=== PATIENT | male | born 1970 | race Caucasian/White ===

== ENCOUNTER 2020-02-10 09:29 | Outpatient (CLI) | payer MEDICARE, SELFPAY ==
[2020-02-10 09:41] LABS: Basophils Absolute Auto 0.11 K/mm3 (0.00-0.10); Eosinophils Percent Auto 5.4 % (1.0-6.0); Hematocrit 49.6 % (40.0-54.0); Hemoglobin 17.1 g/dL (14.0-18.0); Immature Granulocyte Absolute 0.09 K/mm3 (0.00-0.00); Immature Granulocyte Percent A 0.8 % (0.0-0.0); Lymphocytes Absolute Auto 2.17 K/mm3 (1.10-4.50); Lymphocytes Percent Auto 19.4 % (18.0-42.0); Mean Corpuscular HGB Conc 34.5 g/dL (32.0-36.0); Mean Corpuscular Hemoglobin 30.6 pg (27.0-31.0); Mean Corpuscular Volume 88.7 fL (78.0-102.0); Mean Platelet Volume 9.6 fl (8.7-11.0); Monocytes Absolute Auto 1.32 K/mm3 (0.10-0.90); Monocytes Percent Auto 11.8 % (2.0-11.0); Neutrophils Absolute Auto 6.9 K/mm3 (1.7-7.2); Neutrophils Percent Auto 61.6 % (50.0-70.0); Platelet Count Result 250 K/mm3 (150-420); Red Blood Count 5.59 M/mm3 (4.70-6.10); Red Cell Distribution Width 12.7 % (11.6-14.4); White Blood Count 11.2 K/mm3 (4.8-10.8)
[2020-02-10 11:24] LABS: Alanine Aminotransferase 48 U/L (16-63); Albumin Level 3.8 g/dL (3.4-5.0); Alkaline Phosphatase 66 U/L (46-116); Anion Gap 16.1 mmol/L (7-16); Aspartate Amino Transferase 26 U/L (15-37); Bilirubin,Total 0.3 mg/dL (0.00-1.00); Blood Urea Nitrogen 10 mg/dL (7-18); Calcium 8.3 mg/dL (8.5-10.1); Carbon Dioxide 25 mmol/L (21-32); Chloride 105 mmol/L (98-108); Cholesterol 149 mg/dL (0-200); Estimated Glomerular Filt Rate 55; Free T4 Free Thyroxine 0.79 ng/dL (0.76-1.46); Glucose 99 mg/dL (70-99); HDL Direct 31 mg/dL (40-60); LDL Cholesterol Calculated 83 mg/dL (<130); Osmolality Calculated 293 mOsm/kg (285-295); Potassium 4.1 mmol/L (3.5-5.1); Sodium 142 mmol/L (136-145); Thyroid Stimulating Hormone 1.13 uIU/mL (0.36-3.74); Total Protein 6.8 g/dL (6.4-8.2); Triglycerides 177 mg/dL (0-150)
[2020-02-12 16:54] LABS: Vitamin D 25 Hydroxy 15 ng/mL (30-100)
[2020-02-14 18:56] LABS: Testosterone Free 178.1 pg/mL (35.0-155.0); Testosterone Total 672 ng/dL (250-1100)
== END 2020-02-10 09:30 | disposition home or self-care (01) ==
LOC: CHSLAB 09:33
PROVIDERS: PCP Family Medicine
DX: E23.0 Hypopituitarism (principal); E06.3 Autoimmune thyroiditis; E55.9 Vitamin D deficiency, unspecified
CPT/HCPCS: 36415; 80053; 80061; 82306; 84402; 84403; 84439; 84443; 84481; 85025

== ENCOUNTER 2020-07-09 13:44 | Outpatient (CLI) | payer MEDICARE, SELFPAY ==
[2020-07-09 13:55] LABS: Basophils Absolute Auto 0.11 K/mm3 (0.00-0.10); Basophils Percent Auto 0.9 % (0.0-1.0); Eosinophils Absolute Auto 0.55 K/mm3 (0.02-0.50); Eosinophils Percent Auto 4.3 % (1.0-6.0); Hematocrit 47.9 % (40.0-54.0); Hemoglobin 16.5 g/dL (14.0-18.0); Immature Granulocyte Absolute 0.13 K/mm3 (0.00-0.00); Lymphocytes Percent Auto 23.7 % (18.0-42.0); Mean Corpuscular HGB Conc 34.4 g/dL (32.0-36.0); Mean Corpuscular Volume 87.1 fL (78.0-102.0); Mean Platelet Volume 9.5 fl (8.7-11.0); Monocytes Absolute Auto 1.05 K/mm3 (0.10-0.90); Monocytes Percent Auto 8.3 % (2.0-11.0); Neutrophils Absolute Auto 7.8 K/mm3 (1.7-7.2); Neutrophils Percent Auto 61.8 % (50.0-70.0); Platelet Count Result 307 K/mm3 (150-420); Red Cell Distribution Width 12.9 % (11.6-14.4); White Blood Count 12.7 K/mm3 (4.8-10.8)
[2020-07-09 14:04] LABS: Hemoglobin A1C 5.9 % (<5.7)
[2020-07-09 14:48] LABS: Alanine Aminotransferase 36 U/L (16-63); Albumin Level 4.1 g/dL (3.4-5.0); Alkaline Phosphatase 73 U/L (46-116); Anion Gap 12 mmol/L (8-16); Aspartate Amino Transferase 18 U/L (15-37); Bilirubin,Total 0.8 mg/dL (0.00-1.00); Blood Urea Nitrogen 20 mg/dL (7-18); Calcium 9.4 mg/dL (8.5-10.1); Carbon Dioxide 25 mmol/L (21-32); Chloride 102 mmol/L (98-108); Estimated Glomerular Filt Rate 40; Glucose 96 mg/dL (70-99); Osmolality Calculated 290 mOsm/kg (285-295); Potassium 4.1 mmol/L (3.5-5.1); Sodium 139 mmol/L (136-145); Total Protein 7.7 g/dL (6.4-8.2)
[2020-07-12 07:00] LABS: Vitamin D 25 Hydroxy 26 ng/mL (30-100)
[2020-07-12 07:01] LABS: Insulin Level Total 20.5 uIU/mL (<=19.6)
[2020-07-13 10:31] LABS: Testosterone Free 189.7 pg/mL (35.0-155.0); Testosterone Total 713 ng/dL (250-1100)
== END 2020-07-09 13:45 | disposition home or self-care (01) ==
LOC: CHSLAB 13:46
PROVIDERS: PCP Nurse Practitioner Family; Visit Provider Internal Medicine Endocrinology, Diabetes & Metabolism
DX: E29.1 Testicular hypofunction (principal); E55.9 Vitamin D deficiency, unspecified; R73.01 Impaired fasting glucose
CPT/HCPCS: 36415; 80053; 82306; 83036; 83525; 84402; 84403; 85025

== ENCOUNTER 2020-07-11 09:45 | Outpatient (CLI) | payer MEDICARE, SELFPAY ==
--- NOTE | ~2020-07-11 | US_ITS ---
EXAMINATION: US retroperitoneal comp EXAM DATE: 07/11/2020 10:20 INDICATION: Abnormal labs. TECHNIQUE: Multiple grayscale and Doppler images of the kidneys were obtained (by a technologist who performed the scan) and subsequently reviewed. There is no prior study for comparison. FINDINGS: Right kidney: There is normal contour and echogenicity. It measures 11.6 x 6.6 x 6.2 centimeters. Th ere are scattered anechoic lesions consistent with cysts. There is no hydronephrosis. Left kidney: There is normal contour and echogenicity. It measures 11.6 x 5.8 x 5.7 centimeters. The re is a cyst measuring 1.9 cm. There is no hydronephrosis. Bladder unremarkable. IMPRESSION: 1. No hydronephrosis. 2. Renal cysts bilaterally. Reviewed, dictated and finalized at location B.
== END 2020-07-11 09:46 | disposition home or self-care (01) ==
PROVIDERS: PCP Family Medicine; Visit Provider Internal Medicine Endocrinology, Diabetes & Metabolism
DX: N28.9 Disorder of kidney and ureter, unspecified (principal)
CPT/HCPCS: 76770

== ENCOUNTER 2020-07-27 08:01 | Outpatient (CLI) | payer MEDICARE, SELFPAY ==
[2020-07-27 08:25] LABS: Add Urine Microscopic? NO; Appearance Urine Clear (Clear); Bilirubin Urine Negative (Negative); Blood Urine Negative (Negative); Color Urine Yellow (Yellow); Glucose Urine UA Negative (Negative); Ketones Urine Negative (Negative); Leukocyte Esterase Ur Negative (Negative); Nitrate Urine Negative (Negative); Protein Urine Negative (Negative); Specific Grav Ur 1.015 (1.010-1.020); Urobilinogen Urine 0.2 mg/dL (0.2-1.0); pH Urine 6.5 (5.0-8.0)
[2020-07-27 08:26] LABS: Basophils Absolute Auto 0.09 K/mm3 (0.00-0.10); Eosinophils Absolute Auto 0.44 K/mm3 (0.02-0.50); Eosinophils Percent Auto 4.9 % (1.0-6.0); Hematocrit 47.1 % (40.0-54.0); Hemoglobin 15.9 g/dL (14.0-18.0); Immature Granulocyte Absolute 0.12 K/mm3 (0.00-0.00); Immature Granulocyte Percent A 1.3 % (0.0-0.0); Lymphocytes Absolute Auto 2.33 K/mm3 (1.10-4.50); Lymphocytes Percent Auto 25.7 % (18.0-42.0); Mean Corpuscular HGB Conc 33.8 g/dL (32.0-36.0); Mean Corpuscular Volume 88.9 fL (78.0-102.0); Monocytes Absolute Auto 0.82 K/mm3 (0.10-0.90); Neutrophils Absolute Auto 5.3 K/mm3 (1.7-7.2); Neutrophils Percent Auto 58.1 % (50.0-70.0); Platelet Count Result 288 K/mm3 (150-420); Red Cell Distribution Width 13.2 % (11.6-14.4); White Blood Count 9.1 K/mm3 (4.8-10.8)
[2020-07-27 09:11] LABS: Hemoglobin A1C 5.4 % (<5.7)
[2020-07-27 09:42] LABS: Alanine Aminotransferase 45 U/L (16-63); Alkaline Phosphatase 65 U/L (46-116); Anion Gap 9 mmol/L (8-16); Aspartate Amino Transferase 14 U/L (15-37); Bilirubin,Total 0.6 mg/dL (0.00-1.00); Blood Urea Nitrogen 16 mg/dL (7-18); Carbon Dioxide 25 mmol/L (21-32); Chloride 103 mmol/L (98-108); Cholesterol 190 mg/dL (0-200); Estimated Glomerular Filt Rate 44; Glucose 113 mg/dL (70-99); HDL Direct 24 mg/dL (40-60); LDL Cholesterol Calculated 99 mg/dL (<130); Osmolality Calculated 286 mOsm/kg (285-295); Potassium 4.5 mmol/L (3.5-5.1); Prostate Specific Antigen 0.8 ng/mL (< OR = 4.0); Sodium 137 mmol/L (136-145); Total Protein 7.2 g/dL (6.4-8.2); Triglycerides 335 mg/dL (0-150)
[2020-07-30 03:08] LABS: Insulin Level Total 17.4 uIU/mL (<=19.6)
[2020-07-31 12:28] LABS: Vitamin D 25 Hydroxy 25 ng/mL (30-100)
[2020-08-05 12:27] LABS: Testosterone Free 70.5 pg/mL (35.0-155.0); Testosterone Total 328 ng/dL (250-1100)
== END 2020-07-27 08:02 | disposition home or self-care (01) ==
LOC: CHSLAB 08:03
PROVIDERS: PCP Nurse Practitioner Family; Visit Provider Internal Medicine Endocrinology, Diabetes & Metabolism
DX: N28.9 Disorder of kidney and ureter, unspecified (principal); R73.03 Prediabetes; E29.1 Testicular hypofunction; E55.9 Vitamin D deficiency, unspecified; Z12.5 Encounter for screening for malignant neoplasm of prostate; Z79.899 Other long term (current) drug therapy
CPT/HCPCS: 36415; 80053; 80061; 81003; 82306; 83036; 83525; 84153; 84402; 84403; 85025; G0103

== ENCOUNTER 2021-03-28 08:39 | Outpatient (CLI) | payer MEDICARE, SELFPAY ==
[2021-03-28 09:00] LABS: Add Urine Microscopic? NO; Appearance Urine Clear (Clear); Bilirubin Urine Negative (Negative); Blood Urine Negative (Negative); Color Urine Yellow (Yellow); Glucose Urine UA Negative (Negative); Ketones Urine Negative (Negative); Leukocyte Esterase Ur Negative LEU/UL (Negative); Nitrate Urine Negative (Negative); Protein Urine Negative (Negative); Urobilinogen Urine 0.2 mg/dL (0.2-1.0)
[2021-03-28 09:08] LABS: Basophils Absolute Auto 0.09 K/mm3 (0.00-0.10); Basophils Percent Auto 1.1 % (0.0-1.0); Hematocrit 49.9 % (40.0-54.0); Hemoglobin 17.3 g/dL (14.0-18.0); Immature Granulocyte Absolute 0.04 K/mm3 (0.00-0.00); Immature Granulocyte Percent A 0.5 % (0.0-0.0); Lymphocytes Absolute Auto 2.27 K/mm3 (1.10-4.50); Lymphocytes Percent Auto 28.4 % (18.0-42.0); Mean Corpuscular HGB Conc 34.7 g/dL (32.0-36.0); Mean Corpuscular Hemoglobin 30.6 pg (27.0-31.0); Mean Corpuscular Volume 88.2 fL (78.0-102.0); Mean Platelet Volume 9.5 fl (8.7-11.0); Monocytes Absolute Auto 0.59 K/mm3 (0.10-0.90); Monocytes Percent Auto 7.4 % (2.0-11.0); Neutrophils Absolute Auto 4.6 K/mm3 (1.7-7.2); Neutrophils Percent Auto 57.6 % (50.0-70.0); Platelet Count Result 294 K/mm3 (150-420); Red Blood Count 5.66 M/mm3 (4.70-6.10); Red Cell Distribution Width 12.7 % (11.6-14.4)
[2021-03-28 09:12] LABS: Creatinine Urine 125.04 mg/dL (40-278); MALB Creatinine Ratio 11.2 mg/g (0-30); Microalbumin Urine Random 14.1 mg/L; Partial Thromboplastin Time 25.1 SEC (23.90-30.70); Prothrombin Time 10.4 Seconds (9.50-12.10); Total Protein Urine Random 10.7 mg/dL (0.0-11.9); Ur Ttl Prot Creatinine Ratio 0.09 mg/mg (0-0.20)
[2021-03-28 10:00] LABS: Erythrocyte Sedimentation Rate 4 mm/hr (0-20)
[2021-03-28 11:29] LABS: Albumin Level 4.2 g/dL (3.4-5.0); Anion Gap 12 mmol/L (8-16); Blood Urea Nitrogen 39 mg/dL (7-18); CRP < 0.5 mg/dL (0.0-0.9); Calcium 9.5 mg/dL (8.5-10.1); Carbon Dioxide 25 mmol/L (21-32); Chloride 101 mmol/L (98-108); Estimated Glomerular Filt Rate 34; Glucose 114 mg/dL (70-99); Magnesium 1.7 mg/dL (1.8-2.4); Osmolality Calculated 296 mOsm/kg (285-295); Phosphorus 3.4 mg/dL (2.6-4.7); Potassium 4.8 mmol/L (3.5-5.1); Sodium 138 mmol/L (136-145)
[2021-03-31 11:21] LABS: Parathyroid Intact 22 pg/mL (14-64)
[2021-04-01 03:03] LABS: Hepatitis A Antibody IgM Nonreactive; Hepatitis B Core Antibody Nonreactive (Nonreactive); Hepatitis B Surface Antigen Nonreactive (Nonreactive); Hepatitis C Virus Antibody Nonreactive (Nonreactive)
[2021-04-01 12:40] LABS: Complement Total CH50 >60 U/mL (31-60)
[2021-04-02 08:21] LABS: Albumin 3.9 g/dL (3.8-4.8); Alpha 1 Globulin 0.3 g/dL (0.2-0.3); Alpha 2 Globulin 0.8 g/dL (0.5-0.9); Beta 1 Globulin 0.6 g/dL (0.4-0.6); Complement C3 167 mg/dL (82-185); Gamma Globulin 1.1 g/dL (0.8-1.7); Protein, Total 7.2 g/dL (6.1-8.1)
[2021-04-02 11:05] LABS: Vitamin D 25 Hydroxy 34 ng/mL (30-100)
[2021-04-03 04:14] LABS: Kappa\\Lambda Light Chains 1.44 (0.26-1.65); Lambda Light Chain 17.7 mg/L (5.7-26.3)
== END 2021-03-28 08:40 | disposition home or self-care (01) ==
LOC: CHSLAB 08:44
PROVIDERS: PCP Family Medicine; Visit Provider Internal Medicine Nephrology
DX: N39.0 Urinary tract infection, site not specified (principal); D63.1 Anemia in chronic kidney disease; I77.6 Arteritis, unspecified; N25.0 Renal osteodystrophy; K75.9 Inflammatory liver disease, unspecified; E55.9 Vitamin D deficiency, unspecified
CPT/HCPCS: 36415; 80069; 80074; 81003; 82043; 82306; 82570; 83735; 83883; 83970; 84155; 84156; 84165; 85025; 85610; 85652; 85730; 86140; 86160; 86162; 86334

== ENCOUNTER 2021-05-10 08:13 | Outpatient (CLI) | payer MEDICARE, SELFPAY ==
[2021-05-10 08:36] LABS: Creatinine Urine 134.56 mg/dL (40-278); MALB Creatinine Ratio 9.6 mg/g (0-30); Microalbumin Urine Random < 13.0 mg/L; Ur Ttl Prot Creatinine Ratio 0.13 mg/mg (0-0.20)
[2021-05-10 09:06] LABS: Albumin Level 3.7 g/dL (3.4-5.0); Anion Gap 12 mmol/L (8-16); Blood Urea Nitrogen 21 mg/dL (7-18); Carbon Dioxide 24 mmol/L (21-32); Chloride 104 mmol/L (98-108); Estimated Glomerular Filt Rate 60; Glucose 128 mg/dL (70-99); Osmolality Calculated 295 mOsm/kg (285-295); Phosphorus 2.3 mg/dL (2.6-4.7); Potassium 4.6 mmol/L (3.5-5.1); Sodium 140 mmol/L (136-145)
[2021-05-13 03:38] LABS: Vitamin D 25 Hydroxy 29 ng/mL (30-100)
== END 2021-05-10 08:14 | disposition home or self-care (01) ==
LOC: CHSLAB 08:15
PROVIDERS: PCP Family Medicine; Visit Provider Internal Medicine Nephrology
DX: E55.9 Vitamin D deficiency, unspecified (principal); I12.9 Hypertensive chronic kidney disease with stage 1 through stage 4 chronic kidney disease, or unspecified chronic kidney disease; N18.30 Chronic kidney disease, stage 3 unspecified; E78.5 Hyperlipidemia, unspecified; G89.29 Other chronic pain
CPT/HCPCS: 36415; 80069; 82043; 82306; 82570; 83735; 84156

== ENCOUNTER 2021-06-06 09:03 | Outpatient (CLI) | payer MEDICARE, SELFPAY ==
[2021-06-06 09:14] LABS: Basophils Absolute Auto 0.15 K/mm3 (0.00-0.10); Basophils Percent Auto 1.3 % (0.0-1.0); Eosinophils Absolute Auto 0.68 K/mm3 (0.02-0.50); Hematocrit 42.7 % (40.0-54.0); Hemoglobin 15.4 g/dL (14.0-18.0); Immature Granulocyte Absolute 0.23 K/mm3 (0.00-0.00); Lymphocytes Absolute Auto 3.16 K/mm3 (1.10-4.50); Lymphocytes Percent Auto 27.8 % (18.0-42.0); Mean Corpuscular HGB Conc 36.1 g/dL (32.0-36.0); Mean Corpuscular Hemoglobin 30.8 pg (27.0-31.0); Mean Corpuscular Volume 85.4 fL (78.0-102.0); Mean Platelet Volume 9.1 fl (8.7-11.0); Monocytes Absolute Auto 0.83 K/mm3 (0.10-0.90); Monocytes Percent Auto 7.3 % (2.0-11.0); Neutrophils Absolute Auto 6.3 K/mm3 (1.7-7.2); Neutrophils Percent Auto 55.6 % (50.0-70.0); Platelet Count Result 331 K/mm3 (150-420); Red Cell Distribution Width 13.1 % (11.6-14.4); White Blood Count 11.4 K/mm3 (4.8-10.8)
[2021-06-06 10:03] LABS: Alanine Aminotransferase 41 U/L (16-63); Alkaline Phosphatase 85 U/L (46-116); Anion Gap 14 mmol/L (8-16); Aspartate Amino Transferase 18 U/L (15-37); Bilirubin,Total 0.5 mg/dL (0.00-1.00); Blood Urea Nitrogen 23 mg/dL (7-18); Carbon Dioxide 21 mmol/L (21-32); Chloride 105 mmol/L (98-108); Estimated Glomerular Filt Rate 54; Glucose 110 mg/dL (70-99); Osmolality Calculated 294 mOsm/kg (285-295); Potassium 4.7 mmol/L (3.5-5.1); Sodium 140 mmol/L (136-145); Total Protein 7.4 g/dL (6.4-8.2)
[2021-06-11 18:26] LABS: Testosterone Free 38.5 pg/mL (35.0-155.0); Testosterone Total 171 ng/dL (250-1100)
== END 2021-06-06 09:04 | disposition home or self-care (01) ==
LOC: CHSLAB 09:05
PROVIDERS: PCP Family Medicine
DX: R79.89 Other specified abnormal findings of blood chemistry (principal)
CPT/HCPCS: 36415; 80053; 84146; 84402; 84403; 85025

== ENCOUNTER 2021-12-28 08:58 | Outpatient (CLI) | payer MEDICARE, SELFPAY ==
[2021-12-28 09:10] LABS: Basophils Absolute Auto 0.11 K/mm3 (0.00-0.10); Eosinophils Absolute Auto 0.59 K/mm3 (0.02-0.50); Eosinophils Percent Auto 5.5 % (1.0-6.0); Hematocrit 52.6 % (40.0-54.0); Hemoglobin 18.2 g/dL (14.0-18.0); Immature Granulocyte Absolute 0.07 K/mm3 (0.00-0.00); Immature Granulocyte Percent A 0.6 % (0.0-0.0); Lymphocytes Absolute Auto 1.97 K/mm3 (1.10-4.50); Lymphocytes Percent Auto 18.2 % (18.0-42.0); Mean Corpuscular HGB Conc 34.6 g/dL (32.0-36.0); Mean Corpuscular Hemoglobin 30.6 pg (27.0-31.0); Mean Corpuscular Volume 88.6 fL (78.0-102.0); Mean Platelet Volume 9.5 fl (8.7-11.0); Monocytes Absolute Auto 1.02 K/mm3 (0.10-0.90); Monocytes Percent Auto 9.4 % (2.0-11.0); Neutrophils Absolute Auto 7.1 K/mm3 (1.7-7.2); Neutrophils Percent Auto 65.3 % (50.0-70.0); Platelet Count Result 278 K/mm3 (150-420); Red Blood Count 5.94 M/mm3 (4.70-6.10); Red Cell Distribution Width 14.1 % (11.6-14.4); White Blood Count 10.8 K/mm3 (4.8-10.8)
[2021-12-28 09:25] LABS: Hemoglobin A1C 5.6 % (<5.7)
[2021-12-28 09:47] LABS: Alanine Aminotransferase 42 U/L (16-63); Albumin Level 3.6 g/dL (3.4-5.0); Alkaline Phosphatase 74 U/L (46-116); Anion Gap 10 mmol/L (8-16); Aspartate Amino Transferase 25 U/L (15-37); Bilirubin,Total 0.6 mg/dL (0.00-1.00); Blood Urea Nitrogen 13 mg/dL (7-18); Calcium 8.8 mg/dL (8.5-10.1); Carbon Dioxide 30 mmol/L (21-32); Chloride 102 mmol/L (98-108); Cholesterol 144 mg/dL (0-200); Estimated Glomerular Filt Rate 51; Glucose 113 mg/dL (70-99); HDL Direct 34 mg/dL (40-60); LDL Cholesterol Calculated 73 mg/dL (<130); Osmolality Calculated 295 mOsm/kg (285-295); Potassium 3.2 mmol/L (3.5-5.1); Sodium 142 mmol/L (136-145); Total Protein 7.1 g/dL (6.4-8.2); Triglycerides 185 mg/dL (0-150)
[2022-01-02 04:36] LABS: Insulin Level Total 18.8 uIU/mL (<=19.6)
[2022-01-02 14:26] LABS: Testosterone Free 177.2 pg/mL (35.0-155.0); Testosterone Total 547 ng/dL (250-1100)
== END 2021-12-28 08:59 | disposition home or self-care (01) ==
LOC: CHSLAB 09:00
PROVIDERS: PCP Family Medicine; Visit Provider Internal Medicine Endocrinology, Diabetes & Metabolism
DX: R73.01 Impaired fasting glucose (principal); E78.00 Pure hypercholesterolemia, unspecified
CPT/HCPCS: 36415; 80053; 80061; 83036; 83525; 84402; 84403; 85025

== ENCOUNTER 2022-04-11 10:15 | Outpatient (CLI) | payer MEDICARE, SELFPAY ==
[2022-04-11 10:27] LABS: Eosinophils Absolute Auto 0.57 K/mm3 (0.02-0.50); Eosinophils Percent Auto 5.5 % (1.0-6.0); Hematocrit 47.9 % (40.0-54.0); Hemoglobin 16.6 g/dL (14.0-18.0); Immature Granulocyte Absolute 0.12 K/mm3 (0.00-0.00); Immature Granulocyte Percent A 1.2 % (0.0-0.0); Lymphocytes Absolute Auto 2.52 K/mm3 (1.10-4.50); Lymphocytes Percent Auto 24.2 % (18.0-42.0); Mean Corpuscular HGB Conc 34.7 g/dL (32.0-36.0); Mean Corpuscular Hemoglobin 31.2 pg (27.0-31.0); Mean Platelet Volume 9.2 fl (8.7-11.0); Monocytes Absolute Auto 0.75 K/mm3 (0.10-0.90); Monocytes Percent Auto 7.2 % (2.0-11.0); Neutrophils Absolute Auto 6.4 K/mm3 (1.7-7.2); Neutrophils Percent Auto 60.9 % (50.0-70.0); Platelet Count Result 336 K/mm3 (150-420); Red Blood Count 5.32 M/mm3 (4.70-6.10); Red Cell Distribution Width 12.8 % (11.6-14.4); White Blood Count 10.4 K/mm3 (4.8-10.8)
[2022-04-11 18:01] LABS: Alanine Aminotransferase 63 U/L (16-63); Albumin Level 3.5 g/dL (3.4-5.0); Alkaline Phosphatase 77 U/L (46-116); Anion Gap 9 mmol/L (8-16); Aspartate Amino Transferase 25 U/L (15-37); Bilirubin,Total 0.4 mg/dL (0.00-1.00); Blood Urea Nitrogen 20 mg/dL (7-18); Calcium 8.6 mg/dL (8.5-10.1); Carbon Dioxide 21 mmol/L (21-32); Chloride 106 mmol/L (98-108); Cholesterol 184 mg/dL (0-200); Estimated Glomerular Filt Rate 53; Glucose 123 mg/dL (70-99); HDL Direct 38 mg/dL (40-60); LDL Cholesterol Calculated 94 mg/dL (<130); Osmolality Calculated 285 mOsm/kg (285-295); Potassium 4.4 mmol/L (3.5-5.1); Sodium 136 mmol/L (136-145); Total Protein 7.6 g/dL (6.4-8.2); Triglycerides 260 mg/dL (0-150)
[2022-04-11 19:07] LABS: Hemoglobin A1C 5.6 % (<5.7)
[2022-04-15 19:15] LABS: Testosterone Free 17.4 pg/mL (35.0-155.0); Testosterone Total 78 ng/dL (250-1100)
== END 2022-04-11 10:16 | disposition home or self-care (01) ==
LOC: CHSLAB 10:18
PROVIDERS: PCP Family Medicine; Visit Provider Internal Medicine Endocrinology, Diabetes & Metabolism
DX: E29.1 Testicular hypofunction (principal); R73.03 Prediabetes; Z13.6 Encounter for screening for cardiovascular disorders
CPT/HCPCS: 36415; 80053; 80061; 83036; 84402; 84403; 85025

== ENCOUNTER 2022-07-31 01:33 | Day surgery (SDC) | payer MEDICARE, SELFPAY ==
[2022-07-22 10:34] VITALS: BMI 32.8
[2022-07-31 08:00] VITALS: BP 182/109; PULSE 104; RESP 16; TEMP 36.6; O2SAT 98; BMI 31.1
[2022-07-31] MEDS: LACTATED RINGERS 1,000 ML 150 ML IV CONT (08:23)
--- NOTE | 2022-07-31 08:33 | WPDANESEPPF ---
Anes - Initial Pre Proc Eval Procedure: Operation Date: 07/31/22 09:45 Proposed Procedures p Screening Colonoscopy - Sergio Barrow DO Date/Time: 07/31/22 08:33 Surgeon: Sergio Barrow DO Pre Op Diagnosis: hx of colon polyps Patient Data Age: 51 Gender: M Height: 1.83 m Weight: 104.1 kg Last Vital Signs Temp 97.8 F 07/31/22 08:00 Pulse 104 H 07/31/22 08:00 Resp 16 07/31/22 08:00 BP 182/109 H 07/31/22 08:00 Pulse Ox 98 07/31/22 08:00 O2 Del Method Room Air 07/31/22 08:00 Allergies Allergy/AdvReac Type Severity Reaction Status Date / Time bee venom protein (honey bee) Allergy Unknown SWELLING Verified 07/31/22 08:08 Bee stings Allergy Intermediate Unknown Uncoded 07/31/22 08:08 Home Medications Medication Instructions Recorded Confirmed Type cariprazine 1.5 mg capsule 1.5 mg PO DAILY 04/27/20 07/31/22 History gabapentin 100 mg capsule 100 mg PO TID 04/27/20 07/31/22 History testosterone cypionate 200 mg/mL 200 mg subcut WEEKLY 04/27/20 07/31/22 History intramuscular oil lisinopril 40 mg tablet See Rx Instructions .Route 12/26/20 07/31/22 Rx .COMPLEX #90 tabs rosuvastatin 20 mg tablet See Rx Instructions .Route 07/14/22 07/31/22 Rx .COMPLEX #90 tabs tamsulosin 0.4 mg capsule See Rx Instructions .Route 07/14/22 07/31/22 Rx .COMPLEX #90 caps tizanidine 4 mg tablet See Rx Instructions .Route 07/14/22 07/31/22 Rx .COMPLEX #120 tabs Patient hx anesthesia problems: none Family hx anesthesia problems: none Results Review: All pre-operative results and documents have been reviewed as part of the pre-operative evaluation. [facility] Past Medical History Medical History ADD (attention deficit disorder) Benign hypertension Bipolar disorder with depression BPH (benign prostatic hyperplasia) Generalized anxiety disorder Hypercholesteremia Other testicular dysfunction Surgical History Surgical History History of appendectomy History of repair of rotator cuff S/P spinal surgery Spinal cord injury 2002 Family History Family History Mother Family history of coronary artery disease Other Family history of arthritis Family history of malignant neoplasm Social History Social History Smoking packs per day: 1 Smoking cigarettes per day: 20.0 Years smoked: 20 Smoking pack-years: 20.00 Smoking status: Former smoker Tobacco type: cigarettes and smokeless tobacco Alcohol intake: never Substance use: never Substance use type: does not use Living arrangements: with friend(s) Additional occupation/education comments: disability Gender identity (if verbalized by the patient): Male Spiritual care concerns: No Anes - Eval Final PreProcedure Day of Procedure 07/31/22 08:33 Patient weight: obese Heart: regular rate and rhythm Lungs: clear to auscultation Airway: Mallampati scale class II Neurological: alert and oriented Last oral intake: >/= 8 hours ASA classification: III Emergent: no Anesthetic plan: proceed Anesthesia type and monitoring: general GIVS and standard monitoring Results Review: All pre-operative results and documents have been reviewed as part of the pre-operative evaluation. Informed Consent: The patient's anesthetic plan and its attendant risks and benefits were discussed with the patient/family/POA. Questions were solicited and answers provided to the satisfaction of the patient/family/POA.
--- NOTE | 2022-07-31 09:14 | PM.IMHP ---
H&P: HPI History of Present Illness Date/Time: 07/31/22 09:14 Chief Complaint: History of colon polyps Narrative: 51 yo man presents for colonoscopy. last done 3 years ago and polyps removed. he denies any hematochezia or melena. He has an aunt that has a history of colon cancer but no first-degree relatives. Review of Systems Review of Systems: All systems reviewed & are unremarkable except as noted in HPI and below Constitutional: Constitutional: Denies chills, Denies fever(s), Denies headache(s) and Denies weight loss Eyes: Eyes: Denies change in vision ENT: Denies dizziness, Denies headache(s), Denies neck mass and Denies throat swelling Cardiovascular: Cardiovascular: Denies chest pain, Denies lightheadedness and Denies dyspnea Respiratory: Respiratory: Denies cough, Denies dyspnea and Denies wheezing Gastrointestinal: Gastrointestinal: Denies abdominal pain, Denies change in bowel habits, Denies nausea and Denies vomiting Genitourinary: Genitourinary: Denies hematuria and Denies dysuria Musculoskeletal: Musculoskeletal: Reports as per HPI Integumentary/Breasts: Skin/Breast: Reports as per HPI Neurologic: Denies dizziness and Denies headache(s) Allergic/Immunologic: Allergic/Immunologic: Denies throat swelling and Denies wheezing [facility] Past Medical History Medical History (Updated 07/31/22 @ 09:15 by Sergio Barrow DO) ADD (attention deficit disorder) Benign hypertension Bipolar disorder with depression BPH (benign prostatic hyperplasia) Generalized anxiety disorder Hypercholesteremia Other testicular dysfunction Surgical History Surgical History History of appendectomy History of repair of rotator cuff S/P spinal surgery Spinal cord injury 2002 Family History Family History Mother Family history of coronary artery disease Other Family history of arthritis Family history of malignant neoplasm Social History Social History Smoking packs per day: 1 Smoking cigarettes per day: 20.0 Years smoked: 20 Smoking pack-years: 20.00 Smoking status: Former smoker Tobacco type: cigarettes and smokeless tobacco Alcohol intake: never Substance use: never Substance use type: does not use Living arrangements: with friend(s) Additional occupation/education comments: disability Gender identity (if verbalized by the patient): Male Spiritual care concerns: No Meds Home Medications and Allergies Home Medications Medication Instructions Recorded Confirmed Type cariprazine 1.5 mg capsule 1.5 mg PO DAILY 04/27/20 07/31/22 History gabapentin 100 mg capsule 100 mg PO TID 04/27/20 07/31/22 History testosterone cypionate 200 mg/mL 200 mg subcut WEEKLY 04/27/20 07/31/22 History intramuscular oil lisinopril 40 mg tablet See Rx Instructions .Route 12/26/20 07/31/22 Rx .COMPLEX #90 tabs rosuvastatin 20 mg tablet See Rx Instructions .Route 07/14/22 07/31/22 Rx .COMPLEX #90 tabs tamsulosin 0.4 mg capsule See Rx Instructions .Route 07/14/22 07/31/22 Rx .COMPLEX #90 caps tizanidine 4 mg tablet See Rx Instructions .Route 07/14/22 07/31/22 Rx .COMPLEX #120 tabs Allergies Allergy/AdvReac Type Severity Reaction Status Date / Time bee venom protein (honey bee) Allergy Unknown SWELLING Verified 07/31/22 08:08 Bee stings Allergy Intermediate Unknown Uncoded 07/31/22 08:08 Vital Signs Vital Signs - 24 hr 07/31/22 08:00 Temperature 36.6 C Pulse Rate 104 H Respiratory Rate 16 Blood Pressure 182/109 H Pulse Oximetry 98 Oxygen Delivery Room Air Exam Const: General: no acute distress and alert Orientation/consciousness: patient oriented x3 HENMT: Head: normocephalic and atraumatic Ears: hearing grossly normal bilaterally General nose exam: Normal nares present Mouth: Yes Normal oral
--- NOTE | 2022-07-31 09:44 | SUR.OPER ---
Addendum entered by Marga Kingsley RN 07/31/22 09:46: hepatic flexure polyp did not come through until descending colon polyp was retrieved. both polyps sent in the same jar per dr posadas request. Original Note: hepatic flexure polyp did not come through until descending colon polyp was retrieved. both polyps sent in the same jar.
[2022-07-31 09:55] VITALS: BP 108/78; PULSE 110; RESP 19; O2SAT 93
[2022-07-31 10:05] VITALS: BP 132/84; PULSE 102; RESP 20; O2SAT 94
[2022-07-31 10:15] VITALS: BP 134/100; PULSE 100; RESP 20; O2SAT 94
--- NOTE | 2022-07-31 10:22 | SUR.PHASEII ---
pts bp 130/90-100s in post op. pt did not take his bp med yet, instructed him to take as soon as he got home. voiced understanding.
== END 2022-07-31 10:25 | disposition home or self-care (01) ==
PROVIDERS: PCP Nurse Practitioner Family; Visit Provider Surgery
PROC: 0DJD8ZZ Inspection of Lower Intestinal Tract, Via Natural or Artificial Opening Endoscopic (ICD-10-PCS; CPT 45378; principal; 2022-07-31 09:45)
DX: Z12.11 Encounter for screening for malignant neoplasm of colon (principal); D12.3 Benign neoplasm of transverse colon; K63.5 Polyp of colon; K57.30 Diverticulosis of large intestine without perforation or abscess without bleeding; K64.8 Other hemorrhoids; I10 Essential (primary) hypertension; E78.00 Pure hypercholesterolemia, unspecified; N40.0 Benign prostatic hyperplasia without lower urinary tract symptoms; F31.9 Bipolar disorder, unspecified; F98.8 Other specified behavioral and emotional disorders with onset usually occurring in childhood and adolescence; F41.1 Generalized anxiety disorder; Z87.891 Personal history of nicotine dependence
CPT/HCPCS: 45385; 88305; J2704; J7120

== ENCOUNTER 2022-09-26 08:47 | Outpatient (CLI) | payer MEDICARE, SELFPAY ==
[2022-09-26 09:02] LABS: Eosinophils Absolute Auto 0.45 K/mm3 (0.02-0.50); Eosinophils Percent Auto 4.6 % (1.0-6.0); Hematocrit 51.1 % (40.0-54.0); Hemoglobin 18.1 g/dL (14.0-18.0); Immature Granulocyte Absolute 0.04 K/mm3 (0.00-0.00); Immature Granulocyte Percent A 0.4 % (0.0-0.0); Lymphocytes Absolute Auto 2.78 K/mm3 (1.10-4.50); Lymphocytes Percent Auto 28.7 % (18.0-42.0); Mean Corpuscular HGB Conc 35.4 g/dL (32.0-36.0); Mean Corpuscular Hemoglobin 31.2 pg (27.0-31.0); Mean Corpuscular Volume 88.1 fL (78.0-102.0); Mean Platelet Volume 9.1 fl (8.7-11.0); Monocytes Absolute Auto 0.72 K/mm3 (0.10-0.90); Monocytes Percent Auto 7.4 % (2.0-11.0); Neutrophils Absolute Auto 5.6 K/mm3 (1.7-7.2); Neutrophils Percent Auto 57.9 % (50.0-70.0); Platelet Count Result 288 K/mm3 (150-420); White Blood Count 9.7 K/mm3 (4.8-10.8)
[2022-09-26 09:24] LABS: Hemoglobin A1C 5.8 % (<5.7)
[2022-09-26 09:26] LABS: Alanine Aminotransferase 51 U/L (16-63); Albumin Level 3.9 g/dL (3.4-5.0); Alkaline Phosphatase 81 U/L (46-116); Anion Gap 10 mmol/L (8-16); Aspartate Amino Transferase 29 U/L (15-37); Bilirubin,Total 0.6 mg/dL (0.00-1.00); Blood Urea Nitrogen 13 mg/dL (7-18); Calcium 8.9 mg/dL (8.5-10.1); Carbon Dioxide 24 mmol/L (21-32); Chloride 106 mmol/L (98-108); Cholesterol 174 mg/dL (0-200); Estimated Glomerular Filt Rate 58; Glucose 114 mg/dL (70-99); HDL Direct 42 mg/dL (40-60); LDL Cholesterol Calculated 72 mg/dL (<130); Osmolality Calculated 291 mOsm/kg (285-295); Potassium 4.2 mmol/L (3.5-5.1); Sodium 140 mmol/L (136-145); Triglycerides 299 mg/dL (0-150)
[2022-09-30 15:01] LABS: Testosterone Free 25.2 pg/mL (35.0-155.0); Testosterone Total 128 ng/dL (250-1100)
== END 2022-09-26 08:48 | disposition home or self-care (01) ==
LOC: CHSLAB 08:51
PROVIDERS: PCP Nurse Practitioner Family; Visit Provider Internal Medicine Endocrinology, Diabetes & Metabolism
DX: R73.03 Prediabetes (principal); E29.1 Testicular hypofunction; Z13.6 Encounter for screening for cardiovascular disorders
CPT/HCPCS: 36415; 80053; 80061; 83036; 84402; 84403; 85025

== ENCOUNTER 2023-07-10 08:09 | Outpatient (CLI) | payer MEDICARE, SELFPAY ==
[2023-07-10 08:22] LABS: Basophils Absolute Auto 0.13 K/mm3 (0.00-0.10); Basophils Percent Auto 1.3 % (0.0-1.0); Eosinophils Absolute Auto 0.56 K/mm3 (0.02-0.50); Eosinophils Percent Auto 5.7 % (1.0-6.0); Hematocrit 43.1 % (40.0-54.0); Immature Granulocyte Absolute 0.07 K/mm3 (0.00-0.00); Immature Granulocyte Percent A 0.7 % (0.0-0.0); Lymphocytes Absolute Auto 2.23 K/mm3 (1.10-4.50); Lymphocytes Percent Auto 22.8 % (18.0-42.0); Mean Corpuscular HGB Conc 34.8 g/dL (32.0-36.0); Mean Corpuscular Hemoglobin 30.7 pg (27.0-31.0); Mean Corpuscular Volume 88.3 fL (78.0-102.0); Mean Platelet Volume 9.8 fl (8.7-11.0); Monocytes Absolute Auto 0.76 K/mm3 (0.10-0.90); Monocytes Percent Auto 7.8 % (2.0-11.0); Neutrophils Percent Auto 61.7 % (50.0-70.0); Platelet Count Result 196 K/mm3 (150-420); Red Blood Count 4.88 M/mm3 (4.70-6.10); Red Cell Distribution Width 12.5 % (11.6-14.4); White Blood Count 9.8 K/mm3 (4.8-10.8)
[2023-07-10 09:06] LABS: Creatinine Urine 275.25 mg/dL (40-278)
[2023-07-10 09:15] LABS: MALB Creatinine Ratio 51.8 mg/g (0-30); Microalbumin Urine Random 142.8 mg/L
[2023-07-10 09:20] LABS: Thyroid Stimulating Hormone Reflex 1.25 u/IU/mL (0.36-3.74)
[2023-07-10 09:21] LABS: Alanine Aminotransferase 36 U/L (16-63); Albumin Level 3.9 g/dL (3.4-5.0); Alkaline Phosphatase 105 U/L (46-116); Anion Gap 13 mmol/L (8-16); Aspartate Amino Transferase 32 U/L (15-37); Bilirubin,Total 0.6 mg/dL (0.00-1.00); Blood Urea Nitrogen 16 mg/dL (7-18); Calcium 9.1 mg/dL (8.5-10.1); Carbon Dioxide 26 mmol/L (21-32); Chloride 101 mmol/L (98-108); Cholesterol 167 mg/dL (0-200); Estimated Glomerular Filt Rate 55; Glucose 110 mg/dL (70-99); HDL Direct 44 mg/dL (40-60); LDL Cholesterol Calculated 68 mg/dL (<130); Osmolality Calculated 292 mOsm/kg (285-295); Potassium 3.8 mmol/L (3.5-5.1); Prostate Specific Antigen 0.5 ng/mL (< OR = 4.0); Sodium 140 mmol/L (136-145); Total Protein 7.7 g/dL (6.4-8.2); Triglycerides 277 mg/dL (0-150)
[2023-07-15 17:36] LABS: Testosterone Free 34.6 pg/mL (35.0-155.0); Testosterone Total 167 ng/dL (250-1100)
== END 2023-07-10 08:10 | disposition home or self-care (01) ==
LOC: CHSLAB 08:11
PROVIDERS: PCP Family Medicine; Visit Provider Family Medicine
DX: R35.1 Nocturia (principal); N40.0 Benign prostatic hyperplasia without lower urinary tract symptoms; E29.8 Other testicular dysfunction; I10 Essential (primary) hypertension; E11.9 Type 2 diabetes mellitus without complications; Z12.5 Encounter for screening for malignant neoplasm of prostate
CPT/HCPCS: 36415; 80053; 80061; 82043; 84153; 84402; 84403; 84443; 85025; G0103

== ENCOUNTER 2024-01-07 07:18 | Outpatient (CLI) | payer MEDICARE, SELFPAY ==
--- NOTE | ~2024-01-07 | MR_ITS ---
EXAMINATION: MR brain IAC wo con DATE: 01/07/2024 08:08 INDICATION: Right arm and hand numbness. TECHNIQUE: Magnetic resonance imaging (MRI) of the brain, brainstem, and internal auditory canals was performed without intravenous contrast. COMPARISON: Head CT 11/20/2018 FINDINGS: There is no intracranial hemorrhage, acute infarction, or abnormal intracranial mass lesion . The ventricles are normal in size. The orbits are normal. There are mucous retention cysts in the r ight maxillary sinus. There is a trace left mastoid effusion. The internal auditory canals, inner ear s, and tympanic cavities are normal. IMPRESSION: 1. Normal brain. Reviewed, dictated and finalized at location A. MENT INSTALLER IMPRESSION: 1. Normal brain.
--- NOTE | ~2024-01-07 | XR_ITS ---
AP view of the pelvis and AP and lateral views of the left hip Clinical history: Pain Findings: No acute fracture or dislocation is seen. Osseous alignment is anatomic. There is moderate degenerative change of the left hip joint, especially the superior aspect. Soft tissues are unremarka ble. Impression: Moderate left hip joint degenerative change, as detailed above. Reviewed, dictated and finalized at location . RGICAL MUSIC DIRECTOR Impression: Moderate left hip joint degenerative change, as detailed above.
== END 2024-01-07 07:19 | disposition home or self-care (01) ==
PROVIDERS: PCP Family Medicine; Visit Provider Family Medicine
DX: M25.552 Pain in left hip (principal); R09.89 Other specified symptoms and signs involving the circulatory and respiratory systems
CPT/HCPCS: 70551; 73502

== ENCOUNTER 2024-07-20 08:54 | Outpatient (CLI) | payer MEDICARE, SELFPAY ==
--- NOTE | ~2024-07-20 | XR_ITS ---
Thoracic spine: Clinical Indication: Back pain/pressure AP and lateral views were performed. No fracture is seen. There is normal alignment of the vertebrae. The intervertebral disc spaces appe ar normal. Paravertebral soft tissues appear normal. Impression: No significant abnormalities noted. Reviewed, dictated and finalized at [facility]. Impression: No significant abnormalities noted.
[2024-07-20 09:27] LABS: Basophils Absolute Auto 0.09 K/mm3 (0.00-0.10); Basophils Percent Auto 0.7 % (0.0-1.0); Eosinophils Absolute Auto 0.35 K/mm3 (0.02-0.50); Eosinophils Percent Auto 2.7 % (1.0-6.0); Hematocrit 43.1 % (40.0-54.0); Hemoglobin 15.4 g/dL (14.0-18.0); Immature Granulocyte Absolute 0.06 K/mm3 (0.00-0.00); Immature Granulocyte Percent A 0.5 % (0.0-0.0); Lymphocytes Absolute Auto 1.41 K/mm3 (1.10-4.50); Lymphocytes Percent Auto 10.8 % (18.0-42.0); Mean Corpuscular HGB Conc 35.7 g/dL (32-36); Mean Corpuscular Hemoglobin 31.3 pg (27.0-31.0); Mean Corpuscular Volume 87.6 fL (78.0-102.0); Mean Platelet Volume 9.5 fl (8.7-11.0); Monocytes Absolute Auto 0.99 K/mm3 (0.10-0.90); Monocytes Percent Auto 7.6 % (2.0-11.0); Neutrophils Absolute Auto 10.12 K/mm3 (1.70-7.20); Neutrophils Percent Auto 77.7 % (50.0-70.0); Platelet Count Result 271 K/mm3 (150-420); Red Blood Count 4.92 M/mm3 (4.70-6.10); Red Cell Distribution Width 13.9 % (11.6-14.4)
[2024-07-20 10:05] LABS: Alanine Aminotransferase 29 U/L (16-63); Albumin Level 3.6 g/dL (3.4-5.0); Alkaline Phosphatase 87 U/L (46-116); Anion Gap 13 mmol/L (4-12); Aspartate Amino Transferase 22 U/L (15-37); Bilirubin,Total 0.7 mg/dL (0.00-1.00); Blood Urea Nitrogen 17 mg/dL (7-18); Calcium 9.6 mg/dL (8.5-10.1); Carbon Dioxide 26 mmol/L (21-32); Chloride 101 mmol/L (98-108); Estimated Glomerular Filt Rate > 60; Glucose 119 mg/dL (70-99); NT Pro B Type Natriuretic Pept 187 pg/mL (0-125); Osmolality Calculated 292 mOsm/kg (285-295); Potassium 3.9 mmol/L (3.5-5.1); Sodium 140 mmol/L (136-145); Total Protein 7.7 g/dL (6.4-8.2); Troponin I 7.8 ng/L (0.00-60.4)
== END 2024-07-20 08:55 | disposition home or self-care (01) ==
PROVIDERS: PCP Family Medicine; Visit Provider Family Medicine
DX: I10 Essential (primary) hypertension (principal); M54.6 Pain in thoracic spine; I11.0 Hypertensive heart disease with heart failure
CPT/HCPCS: 36415; 72072; 80053; 83880; 84484; 85025

== ENCOUNTER 2024-07-22 09:54 | Outpatient (NON) | payer MEDICARE, SELFPAY | END 2024-07-22 09:55 | disposition home or self-care (01) | LOC: CHSLAB 09:56 | PROVIDERS: Visit Provider Family Medicine | DX: L82.1 Other seborrheic keratosis (principal) | CPT/HCPCS: 88305 ==

== ENCOUNTER 2024-08-04 12:37 | Outpatient (CLI) | payer MEDICARE, SELFPAY ==
--- NOTE | ~2024-08-04 | US_ITS ---
EXAMINATION: US scrotum doppler, US soft tissue groin RT DATE: 08/04/2024 13:24 INDICATION: Right testicular pain. Chronic mass superior to the scrotum. TECHNIQUE: Testicular sonogram utilizing grayscale and Doppler. Additional ultrasound images were obt ained at the right groin to assess for possible inguinal hernia. COMPARISON: None. FINDINGS: The right testis measures 3.6 x 2.7 x 3.0 cm. The left testis measures 3.7 x 1.9 x 2.0 cm. Symmetric normal grayscale appearance to both testes. There is normal vascular flow to both testes. The right e pididymis is not visualized. There is a 4.7 x 3.9 x 3.6 similar simple likely epididymal cyst at the head of the right epididymis. The remainder the visualized right epididymis appears normal. The left epididymis is normal with normal vascular flow. There is no varicocele or hydrocele. No right inguina l hernia identified. IMPRESSION: 1. 4.7 cm likely epididymal head cyst along the cephalad margin of the right testis. 2. No evident right inguinal hernia. Reviewed, dictated and finalized at location B. IMPRESSION: 1. 4.7 cm likely epididymal head cyst along the cephalad margin of the right t estis. 2. No evident right inguinal hernia.
== END 2024-08-04 12:38 | disposition home or self-care (01) ==
LOC: CHSIMG 12:38
PROVIDERS: PCP Family Medicine; Visit Provider Surgery
DX: K40.90 Unilateral inguinal hernia, without obstruction or gangrene, not specified as recurrent (principal); R10.31 Right lower quadrant pain; N50.89 Other specified disorders of the male genital organs; N50.3 Cyst of epididymis
CPT/HCPCS: 76870; 76882; 93976

== ENCOUNTER 2025-05-11 08:36 | Outpatient (CLI) | payer MEDICARE, SELFPAY ==
--- NOTE | ~2025-05-11 | XR_ITS ---
[id number] Ordering provider: Twin Martins DO History: . S22.49XA - Multiple fractures of ribs, unspecified side, ... . Comparison: None. FINDINGS: BONES: Possible fracture in the right anterior end of the ninth and 10th ribs. Clinical correlation a dvised. Fracture of the anterior left 10th rib MEDIASTINUM: The cardiac silhouette is not enlarged. LUNGS: No effusions or infiltrates. No pneumothorax. SOFT TISSUES: Highly suggestive cholelithiasis. IMPRESSION: Highly suggestive fracture in the anterior end of the right ninth and 10th ribs and left 10th rib. Cl inical correlation advised. Reviewed, dictated and finalized at location A. IMPRESSION: Highly suggestive fracture in the anterior end of the right ninth and 10th ribs and left 10th rib. Clinical correlation advised.
--- OUTSIDE RECORDS SUMMARY | 2025-05-11 08:45 | XMS_ITS | Clinical Summary ---
Author Organization [facility] Facility Address [address] [address] Care Team Providers Care Guide Visitor Name Role Phone SandraChel elliottananya RAMIREZ Primary Care Provider [phone] Medications buPROPion SR (WELLBUTRIN SR) 100 MG 12 hr tablet Take 100 mg by mouth 2 (two) times a day 1 Active Vraylar 1.5 MG capsule 1 Active Cholecalcifero l 125 MCG (5000 UT) tablet at bed time Active gabapentin (NEURONTIN) 100 MG capsule Take 100 mg by mouth 2 (two) times a day 1 Active hydrOXYzine (ATARAX) 50 MG tablet Take 50 mg by mouth at bed time 1 Active rosuvastatin (CRESTOR) 20 MG tablet Take 20 mg by mouth at bed time 1 Active tamsulosin (FLOMAX) 0.4 MG 24 hr capsule Take 0.4 mg by mouth at bed time 1 Active testosterone cypionate (DEPO-TESTOTER ONE) 200 MG/ML injection testosterone cypionate 200 mg/mL intramuscular oil Active tiZANidine (ZANAFLEX) 4 MG tablet tizanidine 4 mg tablet Active lisinopril 20 MG tablet Take 1 tablet (20 mg total) by mouth at bed time 90 tablet 1 1 Active Family History Medical History Relation Comments Stroke Father Cancer Mother Relation Status Comments Father Mother Social History Tobacco Use Types Packs/Day Years Used Date Smoking Tobacco: Former Alcohol Use Standard Drinks/Week Comments No 0 (1 standard drink = 0.6 oz pur e alcohol) Sex and Gender Information Value Date Recorded Sex Assigned at Not on file Legal Sex Male 2:52 PM EDT Gender Identity Not on file Sexual Orientation Not on file Last Filed Vital Signs Vital Sign Reading Time Taken Comments Blood Pressure 120/80 05/15/2021 11:01 AM CDT Pulse 77 05/15/2021 11:01 AM CDT Temperature 36.7 C (98.1 F) 05/15/2021 11:01 AM CDT Respiratory Rate 18 05/15/2021 11:01 AM CDT Oxygen Saturation 96% 05/15/2021 11:01 AM CDT Inhaled Oxygen Concentration - - Weight 107 kg (234 lb 12.8 oz) 05/15/2021 11:01 AM CDT Height 182.9 cm (6') 05/15/2021 11:01 AM CDT Body Mass Index 31.84 05/15/2021 11:01 AM CDT Plan of Treatment Health Maintenance Due Date Last Done Comments Hepatitis B Vaccine (1 of 3 - 19+ 3-dose series) 09/02 Colorectal Cancer Screening: Annual FOBT 2017 Colorectal Cancer Screening: Colonoscopy 2017 Colorectal Cancer Screening: Sigmoidoscopy 2017 Pneumococcal Vaccine: 50+ Years (1 of 1 - PCV) 018 Influenza Vaccine (Season Ended) 2025 Insurance [employer] [place] Medicare Member Subscriber Plan / Payer (Ef fective 2021-Present) Name:Deepak Tavarez Relation to Subscriber:Self Name:Deepak Tavarez Payer ID:[id number] (NAIC) Group ID:Not on file Type:Not on file [phone] Address: [address] [address] [employer] [place] Member Subscriber Plan / Payer (Ef fective 2016-Present) Name:Deepak Tavarez Relation to Subscriber:Self Name:Deepak Tavarez Payer ID:[id number] (NAIC) Type:Not on file x3 Address: [address] [address] Care Teams Guide Visitor Relationship Specialty Start Date End Date Twin Martins DO [address] [place] [id number] PCP - General Family Medicine 05/15/21
[2025-05-11 08:49] LABS: Basophils Absolute Auto 0.07 K/mm3 (0.00-0.10); Basophils Percent Auto 0.6 % (0.0-1.0); Eosinophils Percent Auto 1.9 % (1.0-6.0); Hematocrit 45.6 % (40.0-54.0); Hemoglobin 15.6 g/dL (14.0-18.0); Immature Granulocyte Absolute 0.09 K/mm3 (0.00-0.00); Immature Granulocyte Percent A 0.8 % (0.0-0.0); Lymphocytes Percent Auto 17.6 % (18.0-42.0); Mean Corpuscular HGB Conc 34.2 g/dL (32-36); Mean Corpuscular Hemoglobin 31.9 pg (27.0-31.0); Mean Corpuscular Volume 93.3 fL (78.0-102.0); Mean Platelet Volume 8.8 fl (8.7-11.0); Monocytes Absolute Auto 0.78 K/mm3 (0.10-0.90); Monocytes Percent Auto 7.2 % (2.0-11.0); Neutrophils Absolute Auto 7.77 K/mm3 (1.70-7.20); Neutrophils Percent Auto 71.9 % (50.0-70.0); Platelet Count Result 368 K/mm3 (150-420); Red Blood Count 4.89 M/mm3 (4.70-6.10); Red Cell Distribution Width 13.3 % (11.6-14.4); White Blood Count 10.8 K/mm3 (4.8-10.8)
[2025-05-11 09:29] LABS: Alanine Aminotransferase 36 U/L (6-50); Albumin Level 4.6 g/dL (3.5-5.1); Alkaline Phosphatase 157 U/L (38-126); Anion Gap 12 mmol/L (4-12); Aspartate Amino Transferase 33 U/L (17-59); Blood Urea Nitrogen 20 mg/dL (9-20); Calcium 9.3 mg/dL (8.4-10.2); Carbon Dioxide 20 mmol/L (22-30); Chloride 106 mmol/L (98-107); Cholesterol 251 mg/dL (0-200); Estimated Glomerular Filt Rate > 60; Glucose 117 mg/dL (65-110); HDL Direct 54 mg/dL; LDL Cholesterol Calculated 139 mg/dL (<130); Osmolality Calculated 289 mOsm/kg (285-295); Potassium 4.5 mmol/L (3.4-5.0); Sodium 138 mmol/L (137-145); Total Protein 7.8 g/dL (6.3-8.2); Triglycerides 290 mg/dL (<150)
== END 2025-05-11 08:37 | disposition home or self-care (01) ==
LOC: CHSLAB 08:37
PROVIDERS: PCP Family Medicine; Visit Provider Family Medicine
DX: E03.9 Hypothyroidism, unspecified (principal); I10 Essential (primary) hypertension; S22.49XA Multiple fractures of ribs, unspecified side, initial encounter for closed fracture
CPT/HCPCS: 36415; 71111; 80053; 80061; 84443; 85025

== ENCOUNTER 2025-06-08 07:18 | Outpatient (CLI) | payer MEDICARE, SELFPAY ==
--- OUTSIDE RECORDS SUMMARY | 2025-06-08 07:20 | XMS_ITS | Clinical Summary ---
Author Organization [facility] Facility Address [address] [address] Care Team Providers Care Print Inspector Name Role Phone SandraChel elliottananya RAMIREZ Primary Care Provider Medications buPROPion SR (WELLBUTRIN SR) 100 MG [...] of 1 - PCV) 018 Influenza Vaccine (#1) 2025 Insurance [employer] [place] Medicare Member Subscriber Plan / Payer (Ef fective 2021-Present) Name:Deepak Tavarez Relation to Subscriber:Self Name:Deepak Tavarez Payer ID:[id number] (NAIC) Group ID:Not on file Type:Not on file [phone] Address: [address] [address] [employer] [place] Member Subscriber Plan / Payer (Ef fective 2016-Present) Name:Deepak Tavarez Relation to Subscriber:Self Name:Deepak Tavarez Payer ID:[id number] (NAIC) Type:Not on file x3 Address: [address] [address] Care Teams Print Inspector Relationship Specialty Start Date End Date Twin Martins DO [address] [place] [id number] PCP - General Family Medicine 05/15/21
== END 2025-06-08 07:19 | disposition home or self-care (01) ==
LOC: CHSIMG 07:19
PROVIDERS: PCP Family Medicine; Visit Provider Family Medicine
DX: S06.9XAA Unspecified intracranial injury with loss of consciousness status unknown, initial encounter (principal)
CPT/HCPCS: 99199

== ENCOUNTER 2025-07-08 10:25 | Outpatient (CLI) | payer MEDICARE, SELFPAY ==
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
--- OUTSIDE RECORDS SUMMARY | 2025-07-08 10:28 | XMS_ITS | Clinical Summary ---
Author Organization [facility] Facility Address [address] [address] Care Team Providers Care Inspector Quality Assurance Name Role Phone SandraChel elliottananya RAMIREZ Primary Care Provider [phone] Medications buPROPion SR (WELLBUTRIN SR) 100 MG [...] 018 Influenza Vaccine (#1) 2025 Insurance [employer] Medicare Member Subscriber Plan / Payer (Ef fective 2021-Present) Name:Deepak Tavarez Relation to Subscriber:Self Name:Deepak Tavarez Payer ID:[id number] (NAIC) Group ID:Not on file Type:Not on file [phone] Address: [address] [address] [employer] [place] Member Subscriber Plan / Payer (Ef fective 2016-Present) Name:Deepak Tavarez Relation to Subscriber:Self Name:Deepak Tavarez Payer ID:[id number] (NAIC) Type:Not on file x3 Address: [address] [address] Care Teams Inspector Quality Assurance Relationship Specialty Start Date End Date Twin Martins DO [address] [place] [id number] PCP - General Family Medicine 05/15/21
== END 2025-07-08 10:26 | disposition home or self-care (01) ==
LOC: CHSIMG 10:26
PROVIDERS: PCP Family Medicine; Visit Provider Family Medicine
DX: S06.9XAA Unspecified intracranial injury with loss of consciousness status unknown, initial encounter (principal)
CPT/HCPCS: 70551